=== PATIENT | male | born 1985 | race Caucasian/White ===

== ENCOUNTER 2016-08-28 16:50 | Emergency (ER) | payer BC ==
[~2016-08-28] VITALS: Ht 182.9 cm; Wt 99.8 kg
[2016-08-28 16:50] VITALS: BP 139/79
== END 2016-08-28 18:35 | disposition home or self-care (01) ==
LOC: ER 17:06
DX: S20.211A Contusion of right front wall of thorax, initial encounter (principal); Z90.89 Acquired absence of other organs; W18.39XA Other fall on same level, initial encounter; Y93.23 Activity, snow (alpine) (downhill) skiing, snowboarding, sledding, tobogganing and snow tubing; Y92.89 Other specified places as the place of occurrence of the external cause; Y99.9 Unspecified external cause status
CPT/HCPCS: 71100-TC; A4606; Z7610